=== PATIENT | male | born 1960 | race Hispanic/Latino ===

== ENCOUNTER → 2025-01-05 | Day surgery (SDC) | payer MEDICARE ==
[2025-01-03 09:38] LABS: BASOPHILS % 0.5 % (0.0-1.0); EOSINOPHILS % 1.2 % (0.0-6.0); LYMPHOCYTES % 17.5 % (18.0-39.1); MONOCYTES % 8.5 % (4.4-11.3); NEUTROPHILS % 71.3 % (38.7-80.0); RED CELL DISTRIBUTION WIDTH 14.5 % (11.7-14.4)
[2025-01-03 10:20] LABS: EST GLOMERULAR FILTRATION RATE 62.0 ML/MIN (>=60)
[2025-01-03 10:35] LABS: LYMPHOCYTES % (MANUAL) 16 % (19-48); MONOCYTES % (MANUAL) 11 % (3.4-9.0); NEUTROPHILS % (MANUAL) 71 % (40-74); PLATELET ESTIMATE SLIGHTLY DECREASED; PLATELET MORPHOLOGY COMMENT NORMAL; RBC MORPHOLOGY COMMENT NORMAL; REACTIVE LYMPHOCYTES 2
[~2025-01-05] MED LIST: ALLOPURINOL300 MG PO; ASPIRIN81 MG PO; ATORVASTATIN CA20 MG PO; CLOPIDOGREL75 MG PO; DEXAMETHASONE SOD PHOS INJ 4 MG/ML SDV ONE; FENTANYL CITRATE/PF 100MCG/2 ML INJ ONE; FLOMAX0.4 MG PO; FOLIC ACID0.4 MG PO; HYGROTON25 MG PO; LIDOCAINE HCL 2% LOCAL INJ 5 ML SDV VIAL INJ ONE; LOSARTAN POTASS25 MG PO; METFORMIN HCL500 MG PO; NEURONTIN300 MG PO; OMEPRAZOLE40 MG PO; ONDANSETRON HCL INJ 2MG/ML 2ML 2 MG/ML VIAL ONE; OZEMPIC0.25 MG/02 SC; PROPOFOL IV EMULSION 10 MG/ML 20 ML VIAL ONE; SEVOFLURANE INHAL SOLN 250 ML PEN BTL ONE; VITAMIN D250 MCG PO
[2025-01-05] MEDS: GENTAMICIN 80MG/NS 100 ML 200 ML IV ONE (06:07)
[2025-01-05] MEDS: Ampicillin INJ 1 GM Vial ONE (06:07)
[2025-01-05] MEDS: SODIUM CHLORIDE 0.9% 1000ML 1,000 ML ONE (06:08)
[2025-01-05 09:25] VITALS: TEMP 97.3
[2025-01-05] MEDS: PHENAZOPYRIDINE HCL 100 MG TAB ONE (09:45)
[2025-01-05] MEDS: ACETAMINOPHEN/CODEINE 300MG - 30MG TAB ONE (09:55)
[2025-01-05] MEDS: FENTANYL CITRATE/PF 100MCG/2 ML INJ ONE (09:55)
[2025-01-05 10:40] VITALS: BP 115/79; PULSE 62; RESP 18; O2SAT 97
== END | disposition home or self-care (01) ==
LOC: OR 05:45
PROVIDERS: ATTEND Urology
DX: N35.912 Unspecified bulbous urethral stricture, male (principal); N39.0 Urinary tract infection, site not specified; R31.29 Other microscopic hematuria; N40.1 Benign prostatic hyperplasia with lower urinary tract symptoms; N28.89 Other specified disorders of kidney and ureter; I12.9 Hypertensive chronic kidney disease with stage 1 through stage 4 chronic kidney disease, or unspecified chronic kidney disease; E11.22 Type 2 diabetes mellitus with diabetic chronic kidney disease; N18.9 Chronic kidney disease, unspecified; E29.1 Testicular hypofunction; M19.90 Unspecified osteoarthritis, unspecified site; E66.01 Morbid (severe) obesity due to excess calories; Z79.82 Long term (current) use of aspirin; Z79.84 Long term (current) use of oral hypoglycemic drugs; Z79.85 Long-term (current) use of injectable non-insulin antidiabetic drugs; Z79.2 Long term (current) use of antibiotics; Z79.02 Long term (current) use of antithrombotics/antiplatelets; Z79.899 Other long term (current) drug therapy; Z87.442 Personal history of urinary calculi; Z95.5 Presence of coronary angioplasty implant and graft; Z68.41 Body mass index [BMI] 40.0-44.9, adult; Z80.42 Family history of malignant neoplasm of prostate; Z01.810 Encounter for preprocedural cardiovascular examination; Z01.812 Encounter for preprocedural laboratory examination; Z95.2 Presence of prosthetic heart valve
CPT/HCPCS: 36415 ×2; 52005; 52276; 71046; 74420; 80048; 82948; 85025; 87086; 93005; C1758; J1100; J1580; J2003; J2405; J2704; J3010; J7030